=== PATIENT | male | born 1995 | race Caucasian/White ===

== ENCOUNTER 2018-03-10 18:05 | Emergency (ER) | payer OTHER ==
[2018-03-10] MEDS ORDERED: LIDOCAINE 1% INJ-PF (10 MG/ML) 30 ML SDV INJ ONE (20:06)
[2018-03-10] MEDS ORDERED: AZITHROMYCIN 250 MG TABLET PO ONE (20:06)
[2018-03-10] MEDS ORDERED: CEFTRIAXONE INJ 250 MG VIAL IM ONE (20:06)
--- NOTE | 2018-03-10 20:12 | ER Document Report ---
HPI - HPI Pain Level: 4 Notes: Patient is a 22-year-old male with no significant past medical history who presents to the ED complaining of nasal congestion/discharge, postnasal drip, sinus pressure, dry nonproductive cough, occasional headache, intermittent subjective fevers, dysuria, scant hematuria, and urethral discharge. Patient states that his cold symptoms have been ongoing for the last couple weeks and he recently started noticing urinary symptoms over the last several days. He denies any drug allergies. No other concerns or complaints at this time. Patient states that he is eating and drinking without difficulties. He has been using some [id number] meds with minimal relief. Denies any headache , fever, neck pain, URI, sore throat, chest pain, palpitations, syncope, cough, shortness of breath, wheeze, dyspnea, abdominal pain, nausea/vomiting/diarrhea, urinary retention, or rash. - ROS Systems Reviewed and Negative: Yes All other systems reviewed and negative Past Medical History - Social History Smoking Status: Unknown if Ever Smoked Family History: Reviewed & Not Pertinent Vertical Provider Document - CONSTITUTIONAL Agree With Documented VS: Yes Notes: PHYSICAL EXAMINATION: GENERAL: Well-appearing, well-nourished and in no acute distress. A&Ox4. Answers questions appropriately. Moves comfortably w/o notable distress HEAD: Atraumatic, normocephalic. EYES: Pupils equal round and reactive to light, extraocular movements intact, sclera anicteric, conjunctiva are normal. ENT: EAC clear b/l. TM's intact b/l without erythema, fluid, or perforation. Nares patent and with yellow discharge. oropharynx no erythema without exudates. No tonsilar hypertrophy without erythema or exudate. No palatine shift. Uvula midline. No tongue protrusion. No drooling, hoarseness, or airway compromise. Moist mucous membranes. No sinus tenderness. NECK: Normal range of motion, supple without lymphadenopathy. No rigidity/ meningismus. LUNGS: Breath sounds clear to auscultation bilaterally and equal. No wheezes rales or rhonchi. No retractions HEART: Regular rate and rhythm without murmurs, rubs, gallops. ABDOMEN: Soft, nontender, nondistended abdomen. No guarding, no rebound. No masses appreciated. Normal bowel sounds present. No CVA tenderness bilaterally. No hepatosplenomegaly. : circumcised. No erythema, lesions, ulcerations, or swelling. + thick discharge noted. NEUROLOGICAL: Normal speech, normal gait. Normal sensory, motor exams PSYCH: Normal mood, normal affect. SKIN: Warm, Dry, normal turgor, no rashes or lesions noted. - INFECTION CONTROL TRAVEL OUTSIDE OF THE [place] IN LAST 30 DAYS: No Course - Re-evaluation Re-evalutation: 03/10/18 20:12 Patient is an afebrile, well-hydrated, 22-year-old male who presents to the ED with urethral discharge, probable UTI, and acute URI, suspect viral. Vitals are acceptable. PE is otherwise unremarkable aside from what was noted. Chlamydia and gonorrhea tests are pending. Patient was given Zithromax and Rocephin. No other labs or imaging warranted at this time based on H&P. Patient has no significant tachycardia, tachypnea, or hypoxemia. He is tolerating p.o. without any difficulties. Patient will call back for his results. I will send him home with a pocket prescription of Augmentin which she may begin with ongoing/worsening symptoms over the next 2-3 days. Conservative measures otherwise for symptoms. Recheck with your PCM in 3-5 days. Return to the ED with any worsening/concerning symptoms otherwise as reviewed discharge. Patient is in agreement. - Vital Signs Vital signs: Temp Pulse Resp BP Pulse Ox 98.1 F 69 16 139/79 H 98 03/10/18 18:14 03/10/18 18:14 03/10/18 18:14 03/10/18 18:14 03/10/18 18:14 Discharge - Discharge Clinical Impression: Urethral discharge, Acute URI Condition: Stable Disposition: HOME, SELF-CARE Instructions: Upper Respiratory Illness ([facility]), Urethritis ([facility]) Additional Instructions: Push fluids (i.e. water, cranberry juice) Proper hygenic technique Keep the skin clean Safe sexual practices with condoms everytime Tylenol/ibuprofen as needed Cold medications as needed Check in with the health department this week for further testing* Your chlamydia/Ghon test are pending and you will be notified if positive results; you may call in 1 day for the results as well Return immediately if symptoms worsen F/u with your PCM in 3-5 days for a recheck Consider consult with a Urologist for ongoing/worsening symptoms. Return to the ED with any development of OSPINA/fever, trouble with vision, eye redness, worsening pain, urethral discharge, urinary retention, blood in the urine, flank pain, abdominal pain, n/v, Chest Pain, shortness of breath, joint pains, trouble breathing, or any other worsening/concerning symptoms as needed otherwise. Prescriptions: Amox Tr/Potassium Clavulanate [Augmentin 875-125 Tablet] 1 tab PO BID 10 Days # 20 tablet Forms: Elevated Blood Pressure Referrals: [facility] [Provider Group] - Follow up as needed
[2018-03-10 20:40] VITALS: BP 119/75
[2018-03-10 21:47] LABS: CHLAM PCR NOT DETECTED (NOT DETECT); GON PCR DETECTED (NOT DETECT)
== END 2018-03-10 20:40 | disposition home or self-care (01) ==
LOC: ER 18:05
DX: J06.9 Acute upper respiratory infection, unspecified (principal); R36.9 Urethral discharge, unspecified
CPT/HCPCS: 99283; 96372; 87491; 87591; J3490; J0696

== ENCOUNTER 2018-08-09 11:49 | Emergency (ER) | payer OTHER ==
[2018-08-09 12:12] VITALS: BP 140/82
--- NOTE | 2018-08-09 12:24 | RADIOLOGY REPORT (SQ) ---
EXAM DESCRIPTION: ELBOW RIGHT OVER 2 VIEWS COMPLETED DATE/TIME: 08/09/2018 12:15 pm REASON FOR STUDY: INJURY COMPARISON: None. NUMBER OF VIEWS: Four views. TECHNIQUE: AP, lateral, and both oblique radiographic images acquired of the right elbow. LIMITATIONS: None. FINDINGS: MINERALIZATION: Normal. BONES: No acute fracture or dislocation. No worrisome bone lesions. JOINT: No effusion. SOFT TISSUES: No soft tissue swelling. No foreign body. OTHER: No other significant finding. IMPRESSION: NEGATIVE STUDY OF THE RIGHT ELBOW. NO RADIOGRAPHIC EVIDENCE OF ACUTE INJURY. TECHNICAL DOCUMENTATION: JOB ID: [id number] [employer]- All Rights Reserved Reading location - IP/workstation name: [facility]
[2018-08-09] MEDS ORDERED: HYDROCODONE/ACETAMINOPHEN 5-325 MG TABLET PO ONE (13:37)
[2018-08-09] MEDS ORDERED: CEPHALEXIN 500 MG CAPSULE PO ONE (13:38)
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
== END 2018-08-09 14:28 | disposition home or self-care (01) ==
LOC: ER 11:49
DX: S53.401A Unspecified sprain of right elbow, initial encounter (principal); S50.811A Abrasion of right forearm, initial encounter; S60.811A Abrasion of right wrist, initial encounter; S60.511A Abrasion of right hand, initial encounter; S70.311A Abrasion, right thigh, initial encounter; L03.113 Cellulitis of right upper limb; V29.9XXA Motorcycle rider (driver) (passenger) injured in unspecified traffic accident, initial encounter
CPT/HCPCS: 99283

== ENCOUNTER 2018-12-09 23:29 | Emergency (ER) | payer OTHER ==
[2018-12-10] MEDS ORDERED: ONDANSETRON 4 MG TAB.RAPDIS PO ONE (01:22)
[2018-12-10] MEDS ORDERED: KETOROLAC TROMETHAMINE 60 MG/2 ML SDV IM ONE (01:22)
--- NOTE | 2018-12-10 01:35 | RADIOLOGY REPORT (SQ) ---
EXAM DESCRIPTION: XR HIP 2 OR MORE VIEWS COMPLETED DATE/TME: 12/10/2018 01:03 CLINICAL HISTORY: 22 years, Male, pain COMPARISON: None. NUMBER OF VIEWS: 2 TECHNIQUE: AP pelvis and single view right hip LIMITATIONS: None. FINDINGS: Negative for acute fracture or dislocation. Well-corticated ossific densities near the femoral head could reflect small loose bodies. Soft tissues are otherwise unremarkable IMPRESSION: No acute osseous abnormality. Possible small loose bodies associated with the right hip. copyright 2010 [employer]- All Rights Reserved
[2018-12-10 02:41] LABS: ABSOLUTE LYMPHOCYTES (AUTO) 1.5 10^3/uL (0.5-4.7); ABSOLUTE MONOCYTES (AUTO) 1.5 10^3/uL (0.1-1.4); ABSOLUTE NEUT (AUTO) 11.4 10^3/uL (1.7-8.2); BASOPHILS % (AUTO) 0.2 % (0-2); EOSINOPHILS % (AUTO) 0.1 % (0-6); HEMATOCRIT 44.8 % (37.9-51.0); HEMOGLOBIN 15.8 g/dL (13.5-17.0); LYMPHOCYTES % (AUTO) 10.5 % (13-45); MEAN CORPUSCULAR HEMOGLOBIN 30.8 pg (27.0-33.4); MEAN CORPUSCULAR HGB CONC 35.3 g/dL (32.0-36.0); MEAN CORPUSCULAR VOLUME 87 fl (80-97); MONOCYTES % (AUTO) 10.6 % (3-13); PLATELET COUNT 134 10^3/uL (150-450); RED BLOOD COUNT 5.13 10^6/uL (4.35-5.55); RED CELL DISTRIBUTION WIDTH 12.7 % (11.5-14.0); SEGMENTED NEUTROPHILS % (AUTO) 78.6 % (42-78); TOTAL CELLS COUNTED % (AUTO) 100 %; WHITE BLOOD COUNT 14.5 10^3/uL (4.0-10.5)
[2018-12-10 02:48] LABS: ANION GAP 10 (5-19); BLOOD UREA NITROGEN 11 mg/dL (7-20); CALCIUM 9.6 mg/dL (8.4-10.2); CARBON DIOXIDE 27 mmol/L (22-30); CHLORIDE 102 mmol/L (98-107); GLUCOSE 103 mg/dL (75-110); POTASSIUM 4.5 mmol/L (3.6-5.0); SODIUM 138.8 mmol/L (137-145)
[2018-12-10 02:50] LABS: A TYPE INFLUENZA AG NEGATIVE (NEGATIVE); B INFLUENZA AG NEGATIVE (NEGATIVE)
--- NOTE | 2018-12-10 03:04 | ER Document Report ---
ED General - General Chief Complaint: Hip Pain Stated Complaint: HIP PAIN Time Seen by Provider: 12/10/18 01:03 Primary Care Provider: DOUGLAS ORTEZ DO [Primary Care Provider] - Follow up as needed Mode of Arrival: Ambulatory Information source: Patient, Relative, [facility] Records Notes: 22-year-old male with a history of right hip revision, reconstruction presents with complaint of myalgia, sore throat, nonproductive cough and general malaise for the last 2 days. Patient pain is described as aching, throbbing. Patient's right hip pain is located over the right ASIS. He reports a revision in August 2018. Patient denies any new injury, fever, chest pain, abdominal pain, vomiting, back pain, rash. TRAVEL OUTSIDE OF THE [place] IN LAST 30 DAYS: No - HPI Onset: Just prior to arrival Onset/Duration: Gradual, Persistent Quality of pain: Achy Associated symptoms: Chills, Nonproductive cough, Nausea, Sinus pain/drainage, Sore throat, Sweating. denies: Chest pain, Diarrhea, Fever, Headache, Hurts to breath, Leg swelling, Vomiting Exacerbated by: Denies Relieved by: Denies Similar symptoms previously: No Recently seen / treated by doctor: No - Related Data Allergies/Adverse Reactions: No Known Allergies Allergy (Verified 08/09/18 11:51) Past Medical History - General Information source: Patient - Social History Smoking Status: Current Every Day Smoker Chew tobacco use (# tins/day): Yes Frequency of alcohol use: Social Drug Abuse: None Lives with: Family Family History: Reviewed & Not Pertinent Patient has suicidal ideation: No Patient has homicidal ideation: No Renal/ Medical History: Denies: Hx Peritoneal Dialysis Past Surgical History: Reports: Hx Orthopedic Surgery - hip reconstruction in Aug 2018 - Immunizations Immunizations up to date: Yes Review of Systems - Review of Systems Constitutional: Chills, Malaise. denies: Recent illness EENT: Nose congestion, Throat pain. denies: Blurred vision Cardiovascular: denies: Chest pain, Palpitations, Dyspnea, Dizziness Respiratory: Cough Gastrointestinal: Nausea, Poor appetite. denies: Abdominal pain, Vomiting Genitourinary: denies: Dysuria, Flank pain Male Genitourinary: No symptoms reported Musculoskeletal: Muscle pain, Muscle stiffness. denies: Leg swelling Skin: denies: Rash Hematologic/Lymphatic: No symptoms reported Neurological/Psychological: Headaches -: Yes All other systems reviewed and negative Physical Exam - Vital signs Vitals: Temp Pulse Resp BP Pulse Ox 99.6 F 96 16 132/85 H 97 12/09/18 23:35 12/09/18 23:35 12/09/18 23:35 12/09/18 23:35 12/09/18 23:35 - Notes Notes: PHYSICAL EXAMINATION: GENERAL: Well-appearing, well-nourished and in no acute distress. HEAD: Atraumatic, normocephalic. EYES: Pupils equal round and reactive to light, extraocular movements intact, sclera anicteric, conjunctiva are normal. ENT: Nares patent, oropharynx clear without exudates. Moist mucous membranes. NECK: Normal range of motion, supple without lymphadenopathy LUNGS: Breath sounds clear to auscultation bilaterally and equal. No wheezes rales or rhonchi. HEART: Regular rate and rhythm without murmurs ABDOMEN: Soft, nontender, nondistended abdomen. No guarding, no rebound. No masses appreciated. Musculoskeletal: Normal range of motion, no pitting or edema. No cyanosis. Right hip-no reproducible pain with palpation to the right ASIS, greater trochanter, lateral femur. No associated erythema, warmth, induration, crepitus. Patient has full range of motion of the right hip without pain. NEUROLOGICAL: Cranial nerves grossly intact. Normal speech, normal gait. Normal sensory, motor exams PSYCH: Normal mood, normal affect. SKIN: Warm, Dry, normal turgor, no rashes or lesions noted. Course - Re-evaluation Re-evalutation: 12/10/18 03:17 Laboratory 12/10/18 12/10/18 12/10/18 02:19 02:19 02:28 WBC 14.5 H RBC 5.13 Hgb 15.8 Hct 44.8 MCV 87 MCH 30.8 MCHC 35.3 RDW 12.7 Plt Count 134 L Seg Neutrophils % 78.6 H Lymphocytes % 10.5 L Monocytes % 10.6 Eosinophils % 0.1 Basophils % 0.2 Absolute Neutrophils 11.4 H Absolute Lymphocytes 1.5 Absolute Monocytes 1.5 H Absolute Eosinophils 0.0 Absolute Basophils 0.0 Sodium 138.8 Potassium 4.5 Chloride 102 Carbon Dioxide 27 Anion Gap 10 BUN 11 Creatinine 0.98 Est GFR ( Amer) > 60 Est GFR (Non-Af Amer) > 60 Glucose 103 Calcium 9.6 Influenza A (Rapid) NEGATIVE Influenza B (Rapid) NEGATIVE Hip/Pelvis X-Ray 12/10/18 01:03 IMPRESSION: No acute osseous abnormality. Possible small loose bodies associated with the right hip. copyright 2010 [employer]- All Rights Reserved Temp Pulse Resp BP Pulse Ox 98.7 F 62 18 111/73 98 12/10/18 03:14 12/10/18 03:14 12/10/18 03:14 12/10/18 03:14 12/10/18 03:14 12/10/18 03:19 22-year-old male with a history of right hip revision, reconstruction presents with complaint of myalgia, sore throat, nonproductive cough and general malaise for the last 2 days. Patient pain is described as aching, throbbing. Patient's right hip pain is located over the right ASIS. He reports a revision in August 2018. Patient denies any new injury, fever, chest pain, abdominal pain, vomiting, back pain, rash. Vital signs stable and within normal limits upon arrival. Patient does not appear toxic or dehydrated. He is in no acute distress. Although patient states he has right hip pain he has total body myalgia, associated sore throat, nasal congestion, nausea. Patient has no evidence of septic joint including erythema, warmth, induration, fluctuance or decreased range of motion. X-ray was obtained and showed possible small loose bodies but no other acute osseous abnormality. CBC does show a mild leukocytosis. BMP within normal limits. Influenza negative. Patient received IV fluids, Toradol, Zofran. On reevaluation he is sleeping comfortably. Upon awakening he reports improvement of his body aches. Patient was advised to follow-up with his orthopedic surgeon. He was provided a work note. Patient was evaluated and treated as appropriate for the patient's presenting symptoms and complaint, with consideration of any critical or life threatening conditions that may be associated with their obtained history and exam as noted above. All results were discussed with patient and girlfriend. Patient provided the opportunity to ask questions, and express concerns. Patient was educated on treatments based on their presumed diagnosis as noted above. At this time we will discharge the patient with return precautions and follow-up recommendations. Verbal discharge instructions given a the bedside. Medication warnings reviewed. Patient is in agreement with this plan and has verbalized understanding of return precautions. After careful consideration I feel that that patient can be safely discharged from the emergency department, they were advised to followup with a primary care physician in 2-3 days. Dictation on this chart was performed using voice recognition software and may result in unintended grammatical, spelling, syntax or errors. - Vital Signs Vital signs: Temp Pulse Resp BP Pulse Ox 99.6 F 96 16 132/85 H 97 12/09/18 23:35 12/09/18 23:35 12/09/18 23:35 12/09/18 23:35 12/09/18 23:35 - Laboratory Result Diagrams: 12/10/18 02:19 12/10/18 02:19 Laboratory results interpreted by me: 12/10/18 02:19 WBC 14.5 H Plt Count 134 L Seg Neutrophils % 78.6 H Lymphocytes % 10.5 L Absolute Neutrophils 11.4 H Absolute Monocytes 1.5 H - Diagnostic Test Radiology reviewed: Image reviewed, Reports reviewed Discharge - Discharge Clinical Impression: Myalgia, Elevated blood pressure reading, Viral illness Pharyngitis Qualifiers: Pharyngitis/tonsillitis etiology: unspecified etiology Qualified Code(s): J02.9 - Acute pharyngitis, unspecified Leukocytosis Qualifiers: Leukocytosis type: unspecified Qualified Code(s): D72.829 - Elevated white blood cell count, unspecified Condition: Good Disposition: HOME, SELF-CARE Instructions: Myalagia (Muscle Pain) ([facility]), Sore Throat ([facility]), Viral Syndrome ([facility]) Additional Instructions: Please follow-up with your orthopedic surgeon. Your exam today is reassuring. No evidence of fracture, infection of the hip. Prescriptions: Naproxen [Naprosyn] 500 mg PO Q12H PRN #20 tablet PRN Reason: Pain Scale Of 2 Ondansetron [Zofran Odt 4 mg Tablet] 1 tab PO Q4H PRN #15 tab.rapdis PRN Reason: For Nausea/Vomiting Forms: Elevated Blood Pressure, Return to Work Referrals: DOUGLAS ORTEZ, [Primary Care Provider] - Follow up as needed
[2018-12-10 03:15] VITALS: BP 111/73
== END 2018-12-10 03:17 | disposition home or self-care (01) ==
LOC: ER 23:29
DX: M79.10 Myalgia, unspecified site (principal); M25.551 Pain in right hip; B34.9 Viral infection, unspecified; J02.9 Acute pharyngitis, unspecified; D72.829 Elevated white blood cell count, unspecified; R03.0 Elevated blood-pressure reading, without diagnosis of hypertension; R68.83 Chills (without fever); R11.0 Nausea; J34.89 Other specified disorders of nose and nasal sinuses; R61 Generalized hyperhidrosis; F17.200 Nicotine dependence, unspecified, uncomplicated; R53.83 Other fatigue; R09.81 Nasal congestion; R05 Cough; R63.0 Anorexia; R51 Headache; Z98.890 Other specified postprocedural states
CPT/HCPCS: 99283; 96372; 36415; 85025; 80048; 87804; 73502; J1885; S0119